=== PATIENT | female | born 1970 ===

== ENCOUNTER 2017-08-09 15:53 | Observation (INO) | payer OTHER ==
[~2017-08-09] VITALS: Ht 154.9 cm; Wt 68.0 kg
[~2017-08-09 15:53] MED LIST: ALPR.5 PO; ATEN25 PO; BUSP10 PO; CEFD300 PO; CITA20 PO; CLIN300 PO; CODGUAEL PO; CYCL10 PO; ESCI10 PO; GABA100 PO; GUAI600T33 PO; HYDPAM25 PO; IBUP800 PO; Inderal40 MG PO; LAMO100 PO; OXYC5 PO; PRAZ1 PO; PREG150 PO; PREG50 PO; Venlafaxine HC225 MG PO
[2017-08-09 16:26] LABS: BASOPHILS ABSOLUTE AUTO 0.06 K/mm3 (0.00-0.23); BASOPHILS PERCENT AUTO 1 % (0-2); EOSINOPHILS ABSOLUTE AUTO 0.21 K/mm3 (0.00-0.68); EOSINOPHILS PERCENT AUTO 2 % (0-6); Hematocrit 39.5 % (33.0-51.0); Hemoglobin 13.5 g/dL (11.5-16.0); IMMATURE GRAN ABSOLUTE AUTO 0.04 K/mm3 (0.00-0.10); IMMATURE GRAN PERCENT AUTO 0 % (0-1); LYMPHOCYTES ABSOLUTE AUTO 3.35 K/mm3 (0.84-5.20); LYMPHOCYTES PERCENT AUTO 27 % (21-46); MONOCYTES ABSOLUTE AUTO 1.29 K/mm3 (0.16-1.47); MONOCYTES PERCENT AUTO 11 % (4-13); Mean Corpuscular HGB 30.1 pg (26.0-34.0); Mean Corpuscular HGB Conc 34.2 g/dL (31.5-36.5); Mean Corpuscular Volume 88 fL (80-100); Mean Platelet Volume 9.6 fL (9.1-12.4); NEUTROPHILS ABSOLUTE AUTO 7.32 K/mm3 (1.96-9.15); NEUTROPHILS PERCENT AUTO 60 % (41-73); Platelet Count 474 K/mm3 (150-400); RDW Coefficient Variation 15.1 % (11.7-14.2); Red Blood Cell Count 4.49 M/mm3 (3.80-5.20); White Blood Cell Count 12.27 K/mm3 (4.00-11.30)
[2017-08-09 17:11] LABS: Alanine Aminotransfer (ALT/SGP 20 U/L (12-78); Albumin, Blood 3.7 g/dL (3.4-5.0); Albumin/Globulin Ratio 0.8 (0.8-1.8); Alk Phos 113 U/L (50-136); Anion Gap 10 mmol/L (6-16); Aspartate Aminotrans (AST/SGOT 19 U/L (12-37); Bilirubin, Total 0.4 mg/dL (0.1-1.0); Blood Urea Nitrogen 7 mg/dL (8-24); Bun/Creatinine Ratio 8.4 (12.0-20.0); CO2, Blood 24 mmol/L (21-32); Calcium, Blood 9.7 mg/dL (8.5-10.1); Chloride, Blood 104 mmol/L (98-108); Creatinine, Blood 0.84 mg/dL (0.40-1.00); Ethanol (Alcohol), Blood, Med <3 mg/dL; Globulin, Blood 4.4 g/dL (2.2-4.0); Glomerular Filtration Rate >60 (60-); Glucose, Blood 103 mg/dL (70-99); Potassium, Blood 3.2 mmol/L (3.5-5.5); Salicylate 4.8 mg/dL (2.8-20.0); Sodium, Blood 138 mmol/L (136-145); Total Protein, Blood 8.1 g/dL (6.4-8.2)
[2017-08-09 17:15] LABS: Acetaminophen, Random <2.0 ug/mL (10.0-30.0)
[2017-08-09 17:39] LABS: Bilirubin, Urine Neg (Neg); Blood, Urine Neg (Neg); Glucose Qualitative, Urine Neg (Neg); Ketones, Urine Neg (Neg); Leukocyte Esterase, Urine Neg (Neg); Nitrite, Urine Neg (Neg); Protein, Urine Neg (Neg); Specific Gravity, Urine 1.005 (1.003-1.022); Urobilinogen, Urine NORM (Normal); pH, Urine 6.5 (5.0-8.0)
[2017-08-09 17:53] LABS: Color, Urine Yellow (P-Yellow)
[2017-08-09 17:54] LABS: Appearance, Urine Clear (Clear)
[2017-08-09 17:56] LABS: U Amphetamine Screen Not Detected; U Barbituate Screen Not Detected; U Benzodiazapine Screen Not Detected; U Buprenorphine Screen Not Detected; U Cannabinoids Screen DETECTED; U Cocaine Screen Not Detected; U Methadone Screen Not Detected; U Methamphetamine Screen Not Detected; U Opiates Screen Not Detected; U Oxycodone Screen Not Detected; U Phencyclidine Screen Not Detected; U Propoxyphene Screen Not Detected
[2017-08-09] MEDS ORDERED: PREG150 PO (19:50)
== END 2017-08-10 17:20 | disposition home or self-care (01) ==
LOC: ER 15:53 → EOR 15:54
PROVIDERS: Emergency Medicine
DX: F29 Unspecified psychosis not due to a substance or known physiological condition (principal); F31.9 Bipolar disorder, unspecified; F17.210 Nicotine dependence, cigarettes, uncomplicated
CPT/HCPCS: 80053; 81003; 84436; 84443; 85025; 99285; G0378; G0480; Q3014

== ENCOUNTER 2024-09-24 21:20 | Inpatient (IN) | payer OTHER ==
[~2024-09-24] VITALS: Ht 152.4 cm; Wt 64.9 kg
[~2024-09-24 21:20] MED LIST changes: +VENL150ER PO; -Venlafaxine HC225 MG PO
[2024-09-24 21:56] LABS: BASOPHILS ABSOLUTE AUTO 0.03 K/mm3 (0.00-0.23); BASOPHILS PERCENT AUTO 0 % (0-2); EOSINOPHILS ABSOLUTE AUTO 0.12 K/mm3 (0.00-0.68); EOSINOPHILS PERCENT AUTO 1 % (0-6); Hematocrit 24.2 % (33.0-51.0); Hemoglobin 6.9 g/dL (11.5-16.0); IMMATURE GRAN ABSOLUTE AUTO 0.07 K/mm3 (0.00-0.10); IMMATURE GRAN PERCENT AUTO 0 % (0-1); LYMPHOCYTES ABSOLUTE AUTO 2.35 K/mm3 (0.84-5.20); LYMPHOCYTES PERCENT AUTO 13 % (21-46); MONOCYTES ABSOLUTE AUTO 0.99 K/mm3 (0.16-1.47); MONOCYTES PERCENT AUTO 6 % (4-13); Mean Corpuscular HGB 24.6 pg (26.0-34.0); Mean Corpuscular HGB Conc 28.5 g/dL (31.5-36.5); Mean Corpuscular Volume 86 fL (80-100); Mean Platelet Volume 10.9 fL (9.1-12.4); NEUTROPHILS ABSOLUTE AUTO 14.35 K/mm3 (1.96-9.15); NEUTROPHILS PERCENT AUTO 80 % (41-73); NRBC ABSOLUTE 0.02 K/mm3 (0.00-0.02); NRBC Auto 0.1 /100 WBC (0.0-0.2); Platelet Count 188 K/mm3 (150-400); RDW Coefficient Variation 23.6 % (11.7-14.2); White Blood Cell Count 17.91 K/mm3 (4.00-11.30)
[2024-09-24] MEDS ORDERED: NS 1,000 ML IV SCH ×2 (22:10→23:35)
[2024-09-24 22:12] LABS: U Amphetamine Screen Not Detected; U Barbituate Screen Not Detected; U Benzodiazapine Screen Not Detected; U Buprenorphine Screen Not Detected; U Cannabinoids Screen Not Detected; U Cocaine Screen Not Detected; U Methadone Screen Not Detected; U Methamphetamine Screen Not Detected; U Opiates Screen Not Detected; U Oxycodone Screen Not Detected; U Phencyclidine Screen Not Detected
[2024-09-24 22:15] LABS: Source, Urine Straight Cath
[2024-09-24 22:21] LABS: Bilirubin, Urine 2+ (Neg); Blood, Urine 1+ (Neg); Glucose Qualitative, Urine Neg (Neg); Ketones, Urine Neg (Neg); Leukocyte Esterase, Urine 1+ (Neg); Nitrite, Urine Neg (Neg); Protein, Urine 2+ (Neg); Specific Gravity, Urine 1.025 (1.003-1.022); Urobilinogen, Urine 3+ (Normal)
[2024-09-24 22:22] LABS: Appearance, Urine Cloudy (Clear); Color, Urine Amber (P-Yellow)
[2024-09-24 22:25] LABS: Alanine Aminotransfer (ALT/SGP 38 U/L (12-78); Albumin, Blood 1.5 g/dL (3.4-5.0); Albumin/Globulin Ratio 0.3 (0.8-1.8); Alk Phos 289 U/L (50-136); Anion Gap 9 mmol/L (3-11); Aspartate Aminotrans (AST/SGOT 106 U/L (12-37); Bilirubin, Total 4.5 mg/dL (0.1-1.0); Blood Urea Nitrogen 26 mg/dL (8-24); CO2, Blood 28 mmol/L (21-32); Calcium, Blood 8.6 mg/dL (8.5-10.1); Chloride, Blood 105 mmol/L (98-108); Creatinine, Blood 1.13 mg/dL (0.40-1.00); Ethanol (Alcohol), Blood, Med <3 mg/dL; Globulin, Blood 4.7 g/dL (2.2-4.0); Glomerular Filtration Rate 58 (60-); Glucose, Blood 93 mg/dL (70-99); Potassium, Blood 3.6 mmol/L (3.5-5.5); Sodium, Blood 138 mmol/L (136-145); Total Protein, Blood 6.2 g/dL (6.4-8.2)
[2024-09-24 22:29] LABS: Bacteria Many /hpf; Red Blood Cells, Urine 0-2 /hpf (0-2); Squamous Epithelial Cells Rare /hpf (Few); Transitional Epithelial Cells Few /hpf (0-Rare)
[2024-09-24] MEDS ORDERED: CefTRIAXone Sodium 1,000 MG in NS 50 ML IV ONE (23:10)
[2024-09-24 23:36] LABS: International Normalized Ratio 1.58; Prothrombin Time Results 16.3 Sec (9.7-11.5)
[2024-09-25] VITALS (78 sets, daily range): BP systolic 75–120; BP diastolic 33–98
[2024-09-25 02:09] LABS: Hemoglobin 6.1 g/dL (11.5-16.0)
[2024-09-25] MEDS ORDERED: NS 1,000 ML IV SCH ×2 (04:45→06:00)
[2024-09-25] MEDS ORDERED: Albumin (Human) 25gm/100ml 100 ML IV ONE (05:45)
[2024-09-25] MEDS ORDERED: CefTRIAXone Sodium 1,000 MG in NS 100 ML IV ONE (05:45)
[2024-09-25 05:57] LABS: Base Excess Venous 2.1 mmol/L; Bicarbonate Venous 26.1 mmol/L (24.0-30.0); PCO2 Venous 43.3 mmHg (38-42)
[2024-09-25] MEDS ORDERED: Ondansetron HCl 2 MG / ML 2ML Vial IV PRN (06:00)
[2024-09-25 06:04] LABS: Hematocrit 27.2 % (33.0-51.0); Hemoglobin 8.4 g/dL (11.5-16.0)
[2024-09-25] MEDS ORDERED: Heparin Sodium,Porcine/0.5 NS 500 ML IV SCH (06:20)
[2024-09-25 06:27] LABS: Acetaminophen, Random <2.0 ug/mL (10.0-30.0); Bilirubin, Direct 3.3 mg/dL (0.0-0.3); Bilirubin, Indirect 0.7 mg/dL (0.1-0.7); Ferritin, Serum 77 ng/mL (8-252); Iron Serum 21 ug/dL (50-170); Percent Saturation 13.2 % (15.0-50.0); Total Iron Binding Capacity 159 ug/dL (250-450)
--- NOTE | 2024-09-25 06:35 | NUR ---
ADMISSION 0450 RECEIVED PT FROM ED VIA STRETCHER, TRANSFERRED TO ICU BED ROOM 7, PT AWAKE AND ALERT ORIENTED TO SELF ONLY, FOLLOWS COMMANDS, STATES HER BIRTHDAY IS , PLEASANTLY CONFUSED, SR -SA 70s, BP GOAL MAP >65, TEMP 95.5f , BARE HUGGER ON , PERALTA PATENT AND DRAINING DARWIN URINE TO GRAVITY, MULTI WOUNDS TO MELISSA HIPS, RIGHT THIGH, PERIAREA, AND SACRUM WITH PICTURES IN CHART, PT JAUNDICED, ABD ROUNDED AND FIRM, PIV X4 TO BUE PATENT, 250 ML BOLUS COMPLETED AT TRANSFER, DR WALKER AT BEDSIDE, MAP >65 AT THIS TIME, WILL HOLD ON PLACING CENTRAL LINE AT THIS TIME, LEVOPHED STARTED AT 0530 AT 2 MCG/MIN PER ERAR, PT POSITIONED FOR COMFORT, SIDE RAILS UP X4 BED ALARM MANAGER VALUATION LIGHT IN REACH, PT GIVEN COMPLETED BEDBATH WITH ADMIT, NOTED SMALL NICKEL SIZE BLOODCLOT AT VAGINAL OPENING WITH PERALTA CARE, PT STATES SHE HAS BEED BLEEDING FOR A FEW DAYS AND DOES STILL HAVE HER PERIOD HOWEVER ALSO STATED " THE BABY IN CORNER IS CUTE AND NEEDS ATTENDING TO" AND THAT SHE " IS NOT RIGHT NOW"
[2024-09-25] MEDS ORDERED: Dextrose 50% 50 ML Vial IV PRN (06:55)
[2024-09-25] MEDS ORDERED: Lactobacil 2-S.Thermo-Bifido 1 1 Cap PO SCH (09:00)
[2024-09-25 10:12] LABS: Hematocrit 24.4 % (33.0-51.0); Hemoglobin 7.4 g/dL (11.5-16.0)
[2024-09-25] MEDS ORDERED: Pantoprazole Sodium 40 MG Injection IV SCH (11:25)
[2024-09-25] MEDS ORDERED: D5W-NS 1,000 ML IV ONE (13:30)
[2024-09-25] MEDS ORDERED: Sod Ferric Gluc Complx/Sucrose 125 MG in NS 100 ML IV SCH (13:35)
[2024-09-25] MEDS ORDERED: Miconazole Nitrate 2% 85 GM PWD TOP SCH (14:00)
[2024-09-25 14:17] LABS: Hematocrit 23.1 % (33.0-51.0); Hemoglobin 7.2 g/dL (11.5-16.0)
--- NOTE | 2024-09-25 15:36 | NUR ---
PARACENTESIS: DR. LINK AT BEDSIDE FOR PARACENTESIS. PATIENT TOLERATED VERY WELL. THIS RN AT BEDSIDE. 1L PULLED. LAB ORDERS COLLECTED AND SAMPLE DROPPED OFF AT LAB BY WIRE WRAPPER MACHINE OPERATOR. CONSENT HAD BEEN RECEIEVED BEFORE PROCEDURE FROM PATIENT'S MOTHER LAURIE BOOTHE. VITALS STABLE THROUGHOUT.
[2024-09-25] MEDS ORDERED: Dose Adjust by Pharmacy XX STA ×2 (15:56→22:27)
--- NOTE | 2024-09-25 15:57 | NUR ---
At the request of the Pts. nurse this rice dryer mechanic came to bedside. Pt. is resting but responds when I enter the room. Pt. displays evidence of grogginess, therfore her life review was rather brief. Pt. did verbalize that she practices her yazdanism yobany. Prayed with the Pt. Pt. verbalized gratitude for the spiritual care visit. Will remain available to the Pt.
[2024-09-25 16:15] LABS: Appearance, Body Fluid Clear (Clear); Body Fluid WBC Count 40 /mm3 (0-999); Color, Body Fluid Yellow (None-Yellow); RBC Count, Body Fluid 21 /mm3 (0-0)
[2024-09-25 16:32] LABS: Glucose, Body Fluid 92 mg/dL; Lactate Dehydrogenase, Body Fl 44 U/L
[2024-09-25 16:33] LABS: Albumin, Body Fluid 0.3 g/dL
[2024-09-25] MEDS ORDERED: Albumin (Human) 25gm/100ml 100 ML IV SCH (16:33)
[2024-09-25 16:36] LABS: Protein, Body Fluid 0.8 g/dL
[2024-09-25 16:37] LABS: Total Cell Count, Body Fluid 100
[2024-09-25 18:15] LABS: Hematocrit 24.1 % (33.0-51.0); Hemoglobin 7.4 g/dL (11.5-16.0)
--- NOTE | 2024-09-25 19:21 | NUR ---
SHIFT SUMMARY: NEURO: PATIENT CONTINUED TO BE DROWSY THROUGHOUT THE SHIFT. PATIENT EASILY WOKEN BY VERBAL STIMULI. PATIENT ORIENTED TO SELF, "HOSPITAL" AND 2024. PATIENT ABLE TO FOLLOW SOME DIRECTIONS. RESPONSES ARE DELAYED. MOVING ALL FOUR EXTREMITIES INDEPENDENTLY. DENIED PAIN THROUGHOUT THE SHIFT. PATIENT SHIFTS FREQUENTLY IN THE BED. ASSISTED WITH TURNS. CARDIAC: PATIENT REMAINED ON LEVOPHED AT 3 MCG/MIN TO MAINTAIN MAPS >65. HR IN THE 70-80S. PATIENT DENIED CHEST PAIN OR DISCOMFORT. VITALS REMAINED STABLE POST PARACENTESIS. RESPIRATORY: PATIENT STABLE ON ROOM AIR THROUGHOUT THE SHIFT. SPO2 >92%. BREATHING EVEN AND REGULAR. GI/: PERALTA IN PLACE AND DRAINING FREELY. CLEAR, DARWIN IN COLOR. ABOUT 336 OUT DURING THE SHIFT. NO BOWEL MOVEMENT TODAY. PARACENTESIS PERFORMED AT 1500. PATIENT TOLERATED WELL. ABOUT 1 L OF YELLOW/GREEN FLUID PULLED OFF. PSYCHSOCIAL: PATIENT CALM AND COOPERATIVE. PATIENT RESTLESS IN BED BUT NOT PULLING AT LINES. AT TIMES PATIENT WOULD RESPOND TO A QUESTION THAT WASN'T ASKED. PATIENT'S SISTER CHARLES AT BEDSIDE TODAY. SHE IS CALM AND RECEPTIVE TO UPDATES. PATIENT'S DAUGHTER VICKY CALLED MULTIPLE TIMES TODAY. PATIENT GAVE VERBAL CONSENT FOR US TO PROVIDE INFORMATION TO HER MOTHER, SISTER AND DAUGHTER.
[2024-09-25] MEDS ORDERED: Thiamine HCl 100 MG in NS 50 ML IV SCH (20:00)
--- NOTE | 2024-09-25 22:15 | NUR ---
UPDATE ASSUMED CARE OF PT AT 1900. PT OPENS EYES WITH VERBAL STIMULI, FOLLOWS COMMANDS, BUT RESTLESS AND FIDGETING WITH ALL LINES, NEEDS FREQUENT REDIRECTION TO NOT REMOVE PULSE OX AND TO NOT PULL ON LINES, PLEASANT MICHELLE NOTED, STATES HER BIRTHDAY IS [birth year] AND REPEATS THAT OVER AND OVER WHEN ASKED WHAT YEAR SHE WAS BORN, WHEN ASKED HOW OLD SHE IS PT STATES "28" WHEN CORRECTED TO AGE 54 BY NURSE PT JUST LAUGHED, ALL OTHER ORIENTATION QUESTIONS ANSWERED WITH "UMM" ONLY, PIV X2 TO BUE PATENT WITH LEVOPHED GTT TITRATED PER EMAR FOR MAP >65, HEPARIN GTT INFUSING PER EMAR AND TITRATED PER PHARMACY MANAGEMENT, NS INFUSING AT 100 ML/HR, PERALTA PATENT AND DRAINING TO GRAVITY, SCDs ON, BED ALARM ON SIDE RAILS UP X3, ORAL DONE, TEETH BRUSHED, AND PT GIVEN 30 ML MOUTHWASH TO RINSE MOUTH AND PT SWALLOWED MOUTH WASH WITHOUT DIFFICULTY
[2024-09-26] VITALS (53 sets, daily range): BP systolic 88–161; BP diastolic 51–134
[2024-09-26 03:27] LABS: BASOPHILS ABSOLUTE AUTO 0.04 K/mm3 (0.00-0.23); BASOPHILS PERCENT AUTO 0 % (0-2); EOSINOPHILS ABSOLUTE AUTO 0.18 K/mm3 (0.00-0.68); EOSINOPHILS PERCENT AUTO 1 % (0-6); Hemoglobin 7.4 g/dL (11.5-16.0); IMMATURE GRAN ABSOLUTE AUTO 0.19 K/mm3 (0.00-0.10); IMMATURE GRAN PERCENT AUTO 1 % (0-1); LYMPHOCYTES ABSOLUTE AUTO 3.11 K/mm3 (0.84-5.20); LYMPHOCYTES PERCENT AUTO 17 % (21-46); MONOCYTES ABSOLUTE AUTO 1.49 K/mm3 (0.16-1.47); MONOCYTES PERCENT AUTO 8 % (4-13); Mean Corpuscular HGB 27.2 pg (26.0-34.0); Mean Corpuscular HGB Conc 30.8 g/dL (31.5-36.5); Mean Corpuscular Volume 88 fL (80-100); NEUTROPHILS PERCENT AUTO 72 % (41-73); NRBC ABSOLUTE 0.05 K/mm3 (0.00-0.02); NRBC Auto 0.3 /100 WBC (0.0-0.2); Platelet Count 161 K/mm3 (150-400); RDW Coefficient Variation 21.3 % (11.7-14.2); RDW Standard Deviation 67.1 fL (35.1-46.3); Red Blood Cell Count 2.72 M/mm3 (3.80-5.20); White Blood Cell Count 18.01 K/mm3 (4.00-11.30)
[2024-09-26 03:43] LABS: Anti-Xa UFH, PHA Monitoring 0.31 IU/mL; International Normalized Ratio 1.92; Prothrombin Time Results 19.6 Sec (9.7-11.5)
[2024-09-26 03:47] LABS: Albumin, Blood 2.4 g/dL (3.4-5.0); Albumin/Globulin Ratio 0.7 (0.8-1.8); Bilirubin, Total 4.1 mg/dL (0.1-1.0); Bun/Creatinine Ratio 13.2 (12.0-20.0); Creatinine, Blood 1.06 mg/dL (0.40-1.00); Globulin, Blood 3.5 g/dL (2.2-4.0); Magnesium, Blood 1.5 mg/dL (1.6-2.4); Phosphorus, Blood 2.1 mg/dL (2.5-4.9); Potassium, Blood 2.9 mmol/L (3.5-5.5); Total Protein, Blood 5.9 g/dL (6.4-8.2)
[2024-09-26] MEDS ORDERED: Magnesium Sulf 2 GM/Water 50ML 50 ML IV ONE (03:55)
[2024-09-26] MEDS ORDERED: Potassium Chloride 40 MEQ in NS 250 ML IV ONE (03:55)
[2024-09-26] MEDS ORDERED: Dose Adjust by Pharmacy XX STA ×2 (04:06→11:04)
--- NOTE | 2024-09-26 06:10 | NUR ---
SHIFT SUMMARY PT AWAKE AND ALERT MOST OF SHIFT CONFUSED ALL SHIFT AND FORGETFUL WITH NEED FOR FREQUENT REMINDERS TO LEAVE LINES IN PLACE AND POSITIONING OF ARM FOR IV FLUIDS, EASILY REDIRECTABLE, ASKING MORE QUESTIONS THIS AM OF LOCATION AND WHY SHE IS HERE, STATES SHE IS "IN [place], [place]" AND "GEORGE RAYGOZA IS PRESIDENT",WATCHING TV MOST OF THIS SHIFT, REMAINS ON LEVOPHED GTT AND TITRATED PER EMAR, HEPARIN GTT INFUSING AT 15 UNITS/KG/HR PER PHARMACY, MAG AND POTASSIUM REPLACEMENT INFUSING PER ORDERS, PERALTA PATENT AND DRAINING DARK YELLOW URINE TO GRAVITY, NO BM THIS SHIFT WITH SCANT AMOUNT OF VAGINAL BLEEDING NOTED, PT REQUESTING "[employer]" TO DRINK AND STATES " YOU ARE TOTURING ME NOT LETTING ME DRINK" SIDE RAILS UP X3, BED ALARM DETACKER LIGHT IN REACH
--- NOTE | 2024-09-26 08:30 | NUR ---
[place] of care: Alert & cooperative but confused. Oriented to person & year, knows she is in the hospital but believes she is in [place]. In NSR in the 70s with stable blood pressures - norepi gtt turned off. On room air with clear lung sounds. Groves catheter in place. Currently NPO. PIV x4. Heparin gtt at 15 units/kg/hr. Will continue to monitor.
[2024-09-26] MEDS ORDERED: NS 250 ML IV PRN (08:55)
[2024-09-26] MEDS ORDERED: CefTRIAXone Sodium 2,000 MG in NS 100 ML IV SCH (09:00)
[2024-09-26] MEDS ORDERED: Thiamine HCl 100 MG in NS 50 ML IV SCH (09:00)
[2024-09-26] MEDS ORDERED: Potassium Phosphate Dibasic 30 MM in Dextrose 5% 500 ML IV STA (11:56)
--- NOTE | 2024-09-26 18:00 | NUR ---
Shift summary: Remains confused, oriented to person/year & knows she is in hospital but thinks she is in [place]. Pleasant & cooperative. OOB to chair with walker & one-person assist. In NSR in the 70s with stable blood pressures off levo gtt. On room air. Groves remains in place, draining sophia urine with only 300 cc out for shift. Regular diet ordered but has been drowsy with poor appetite. PIV x4. Heparin gtt remains at 15 units/kg/hr. PCU orders. Will continue to monitor.
[2024-09-26] MEDS ORDERED: Potassium Chloride 10 Meq Tablet SA PO ONE (19:50)
[2024-09-27] VITALS (16 sets, daily range): BP systolic 90–121; BP diastolic 62–90
[2024-09-27 04:58] LABS: Hematocrit 23.4 % (33.0-51.0); Mean Corpuscular HGB 25.7 pg (26.0-34.0); Mean Corpuscular HGB Conc 29.9 g/dL (31.5-36.5); Mean Corpuscular Volume 86 fL (80-100); NRBC ABSOLUTE 0.09 K/mm3 (0.00-0.02); NRBC Auto 0.6 /100 WBC (0.0-0.2); Platelet Count 128 K/mm3 (150-400); RDW Coefficient Variation 21.3 % (11.7-14.2); RDW Standard Deviation 64.9 fL (35.1-46.3); Red Blood Cell Count 2.72 M/mm3 (3.80-5.20); White Blood Cell Count 16.05 K/mm3 (4.00-11.30)
[2024-09-27 05:00] LABS: Mean Platelet Volume 11.3 fL (9.1-12.4)
[2024-09-27 05:17] LABS: Albumin, Blood 2.3 g/dL (3.4-5.0); Albumin/Globulin Ratio 0.7 (0.8-1.8); Bilirubin, Total 4.1 mg/dL (0.1-1.0); Bun/Creatinine Ratio 9.4 (12.0-20.0); Calcium, Blood 8.2 mg/dL (8.5-10.1); Creatinine, Blood 0.96 mg/dL (0.40-1.00); Globulin, Blood 3.4 g/dL (2.2-4.0); Magnesium, Blood 1.9 mg/dL (1.6-2.4); Phosphorus, Blood 2.4 mg/dL (2.5-4.9); Potassium, Blood 3.9 mmol/L (3.5-5.5); Total Protein, Blood 5.7 g/dL (6.4-8.2)
--- NOTE | 2024-09-27 05:37 | NUR ---
SHIFT SUMMARY: PT ATE VERY LITTLE OF HER DINNER AND A FEW SIPS OF AN ENSURE; ENCOURAGED TO EAT/ DRINK MORE. 20 MEQ POTASSIOUM CHLORIODE GIVEN PER PROVIDER ORDER @ 1900 AND LABS RECHECKED THIS MORNING WITH AN INCREASE IN POTASSIUM FROM 2.9 TO 3.9. NO OTHER ACUTE CHANGES OVERNIGHT, PT SLEPT THE MAJORITY OF THE NIGHT. URINE OUPUT OF 300ML TOTAL FOR THE SHIFT AND CONTINUES TO BE AN DARWIN COLOR. ONE NEW ADDITIONAL MEPILEX DRESSING APPLIED TO BLEEDING EXCORIATION ON THE RIGHT GLUTEAL CHEEK. MINIMAL VAGINAL BLEEDING NOTED WHILE PERFORMING CHILO CARE. HEPARIN DRIP CONTINUES GTT 15 MCG/KG/HR.
[2024-09-27] MEDS ORDERED: Dose Adjust by Pharmacy XX STA ×3 (06:23→20:56)
[2024-09-27] MEDS ORDERED: Multivitamins 1 Tab PO SCH (09:00)
--- NOTE | 2024-09-27 09:19 | NUR ---
AM NOTE... ASSUMED CARE OF PT AT 0700, PT IS A&O TO PLACE "HOSPITAL" AND SELF SHE THOUGHT SHE WAS IN [place] AND WHEN ASKED THE YEAR SHE SAID "2024" WHEN ASKED THE MONTH SHE SAID "2024" AND WHEN ASKED HER SHE SAID "2024." PT IS PLEASENT AND COOPERATIVE WITH CARE. SHE IS ON RA WITH O2 SATS>95% L/S CLEAR T/O. PT IS IN SR IN THE 70'S-80'S BP IS STABLE WITH MAPS>65. PT HAS TRACE EDEMA TO HER RLE AND 1+ TO HER LLE. BT ARE PRESENT AND HYPOACTIVE, ABD IS LARGE, AND SLIGHTLY FIRM. TEMP PERALTA IS IN PLACE FOR STRICT I'S AND O'S THIS RN WILL CALL THE PROVIDER ABOUT D/C'ing THE PERALTA. PT'S TEMP THIS AM WAS 96.7. PT IS A 1P ASSIST WITH FWW TO THE BS, SHE HAD A MED LIGHT BROWN SOFT STOOL. PT IS HAVING A SMALL AMOUNT OF [place] RED BLOOD FROM HER VAGINAL AREA, PT DENIES PAIN TO THIS AREA. PT ALSO DENIES ANY KNOWN REASON FOR THE BLEEDING. PLANS TO TRANSFER TO PCU THIS AM.
--- NOTE | 2024-09-27 10:14 | NUR ---
PT TRANSFER... REPORT WAS GIVEN TO COLLINS JOSHI IN PCU. ALL OF PT'S BELONGINGS WERE PACKED AND SENT WITH THE PT. PT'S VSS AT THE TIME OF TRANSFER. THE PT'S MOM LAURIE WAS CALLED AND NOTIFIED OF THE TRANSFER. PT'S KATHRYN WAS D/C'd PRIOR TO TRANSFER TO PCU.
--- NOTE | 2024-09-27 11:54 | NUR ---
PT TRANSFERRED FROM ICU TO PCU01 VIA WHEELCHAIR ACCOMPANIED BY COMMERCIAL DIVER, PT WAS CURRENTLY RECEIVING BLOOD AT THAT TIME. PT IS PLEASANT AND COOPERATIVE ANSWERS SOME QUESTIONS APPROPRIATELY GETS CONFUSED AT TIMES. ALERT AND ORIENTED X2-3. VITALS HRR SR 70-80'S, SBP 110'S, SATS ABOVE 95% ON RA AFEBRILE. PT RESTING IN BED AT THIS TIME, WILL CONTINUE TO MONITOR
[2024-09-27 12:17] LABS: HEPATITIS A ANTIBODY, IGM Negative (Negative); HEPATITIS B CORE ANTIBODY, IGM Negative (Negative); HEPATITIS B SURFACE ANTIGEN Negative (Negative); HEPATITIS C AB CIA INTERP Negative (Negative); HEPATITIS C ANTIBODY CIA INDEX 0.12 IV
[2024-09-27] MEDS ORDERED: Potassium Phosphate Dibasic 30 MM in Dextrose 5% 500 ML IV STA (12:56)
[2024-09-27 13:13] LABS: Hematocrit 28.4 % (33.0-51.0); Hemoglobin 8.7 g/dL (11.5-16.0)
--- NOTE | 2024-09-27 17:09 | NUR ---
SHIFT SUMMARY: RECIEVED PT FROM ICU TODAY. PT IS A/OX 1-2. PT IS AWARE SHE IS IN A HOSPITAL BUT CAN GET CONFUSED ON SITUATION, LOCATION OF HOSPITAL, AND DATE. BP IS STABLE WITH MAP >65. O2 >95% ON ROOM AIR. PT ARRIVED ON UNIT RECIEVING BLOOD. NO SIGNS OF REACTION AT THIS TIME. PT WAS ABLE TO AMBULATE 1-2 ASSIST TO BSC.PT HAD A BM TODAY. PT HAS NOT VOIDED SINCE CATHETER REMOVAL BLADDER SCAN SHOW <400 IN BLADDER.WILL REPORT TO ONCOMING RN.
[2024-09-28 00:20] VITALS: BP 108/76
[2024-09-28 03:19] LABS: Hematocrit 28.4 % (33.0-51.0); Hemoglobin 8.7 g/dL (11.5-16.0); Mean Corpuscular HGB Conc 30.6 g/dL (31.5-36.5); Mean Corpuscular Volume 88 fL (80-100); Mean Platelet Volume 12.2 fL (9.1-12.4); NRBC ABSOLUTE 0.09 K/mm3 (0.00-0.02); NRBC Auto 0.5 /100 WBC (0.0-0.2); Platelet Count 122 K/mm3 (150-400); RDW Coefficient Variation 19.9 % (11.7-14.2); RDW Standard Deviation 59.7 fL (35.1-46.3); Red Blood Cell Count 3.22 M/mm3 (3.80-5.20); White Blood Cell Count 16.98 K/mm3 (4.00-11.30)
[2024-09-28 03:34] VITALS: BP 107/85
[2024-09-28 03:38] LABS: Bun/Creatinine Ratio 12.9 (12.0-20.0); Calcium, Blood 8.2 mg/dL (8.5-10.1); Creatinine, Blood 0.86 mg/dL (0.40-1.00); Magnesium, Blood 1.7 mg/dL (1.6-2.4); Phosphorus, Blood 2.6 mg/dL (2.5-4.9)
--- NOTE | 2024-09-28 03:38 | NUR ---
sHIFT SUMMARY: PT IS ALERT BUT FORGETFUL WITH A FLAT AFFECT, SHE IS NSR IN 80-90S RUNNING HEPARIN WITH ONE TITRATION THIS SHIFT , RA-LUNGS CLEAR BUT DIM AT BASES, ABD IS LARGE AND TAUNT WITH FLUID MAKING A BLADDER SCAN IMPOSSIBLE TO OBTAIN AN ACURATE READING SINCE PERALTA WAS PULLED UPON DC FROM ICU, REG DIET THIN FLUIDS, SLIGHT VAGINAL BLEEDING NOTED THIS SHIFT, PT ENDORSES R QUAD PAIN WHEN SHE SITS UP, HGB WNL AT THIS TIME, WBC TRENDING UP, PT IS ABLE TO MAKE HER NEEDS KNOWN AND IS COOPERATIVE WITH CARES, SHE HAS HER CALL LIGHT AND FREQUENTLY USED ITEMS WITH IN REACH AT THIS TIME
[2024-09-28] MEDS ORDERED: Clarify Drug Order XX ONE (03:50)
[2024-09-28 07:58] VITALS: BP 100/73
[2024-09-28] MEDS ORDERED: Dose Adjust by Pharmacy XX STA ×2 (10:59→17:36)
[2024-09-28 12:30] VITALS: BP 150/77
[2024-09-28 16:12] VITALS: BP 108/71
--- NOTE | 2024-09-28 17:17 | NUR ---
SHIFT SUMMARY: PT VSS T/O SHIFT. NO ACUTE CHANGES. PT AMBULATED TO CHAIR TODAY AND WAS EVALUATED BY PHYSICAL THERAPY, RECOMMENDS LTC DUE TO COGNITIVE CONCERNS. THORACENTESIS SCHEDULED FOR 09/30/24. PLAN IS TO D/C HEPARIN DRIP POST THORACENTESIS FOR ORAL BLOOD THINNERS. WILL REPORT TO ONCOMING RN. PT HAS POOR APPETITE T/O SHIFT, DIETARY CONSULT ORDERED. PRIMARY RN UPDATED PT DAUGHTER ON PLAN OF CARE.
[2024-09-28 19:47] VITALS: BP 119/94
[2024-09-29] VITALS (7 sets, daily range): BP systolic 105–126; BP diastolic 75–88
[2024-09-29] MEDS ORDERED: Dose Adjust by Pharmacy XX STA (01:07)
--- NOTE | 2024-09-29 05:33 | NUR ---
SHIFT SUMMARY: : PT AOX3, UNABLE TO LET NURSE KNOW WHAT HOSPITAL SHE IS IN, THINKS [facility] [place]. OTHERWISE, PT COOPERATIVE W/ STAFF. SHE NEEDS FREQUENT ORIENTATION TO UTILIZE CALL LIGHT. ON TELE SR HRS 97s. DENIES CP/PRESSURE. BPS STABLE, MAPS 90-100S. HEP/GTT RUNNING PER EMAR LAC. ON RA AT BASELINE, DID PUT PT ON 3L NOC O2 D/T SATS <88%, NOW STAYING >98%. BREATHING IS EVEN AND UNLABORED. PT HAD A PARACENTESIS DONE ON DAY SHIFT AND THE PUNCTURE FROM THE SITE WAS ACTIVELY LEAKING FLUID EARLIER IN THE SHIFT THAT SATURATED HER BED/GOWN. COVERED IT W/ABD PAD AND TEGADERM, RECHECKED END OF SHIFT AND SITE LEAKING W/ PT MOVEMENT AND PRESSURE, REDRESSED SITE W/ A 2X2 GAUZE, FLUID IS CLEAR, PT DENIES PAIN AT SITE AND WHEN PALPATING ABD, SEE GI ASSESSMENT. OTHERWISE, NO ACUTE CHANGES THROUGHOUT SHIFT. BED AT LOWEST POSITION, CALL LIGHT WITHIN REACH.
--- NOTE | 2024-09-29 06:40 | NUR ---
REVIEWED AND AGREED WITH ALL FORESTRY PILOT DOCUMENTATION
[2024-09-29 07:22] LABS: Hematocrit 28.2 % (33.0-51.0); Hemoglobin 8.8 g/dL (11.5-16.0); Mean Platelet Volume 11.4 fL (9.1-12.4); Platelet Count 111 K/mm3 (150-400)
[2024-09-29] MEDS ORDERED: Arginine/Glutamine/Calcium Hmb 1 Packet PO SCH (10:15)
--- NOTE | 2024-09-29 10:37 | NUR ---
DAUGHTER CALLED FOR UPDATE TODAY. DAUGHTER WOULD LIKE A TEAMS MEETING IF NEEDED TO DISCUSS PATIENT DISCHARGE PLAN-DAUGHTER WOULD LIKE FOR PATIENT TO GO TO LTC PATIENT IS NOT ABLE TO CARE FOR HERSELF PER FAMILY. DAUGHTER UPDATED ON PATIENTS CURRENT CONDITION AND PLAN OF CARE FOR REPEAT PARCENTESIS TOMORROW 09/30/24 AND THAT DOCTOR DARY SAID THAT PATIENT COULD POTENTIALLY DISCHARGE TOMORROW OR THE NEXT DAY. DAUGHTER ALSO ASKED IF [facility] IS A[facility] THAT [facility]IENT IS [facility] THE HOSPITAL SHE IS A VERTERAN AND HAS [facility] BENEFITS. THIS RN LET DAUGHTER KNOW THAT CASE MANAGEMENT WORKS ON PATIENT DISCHARGE T/O THE PATIENTS HOSPITAL STAY AND THAT PLAN OF DISCHARGE IS DEPENDENT ON MULTIPLE FACTORS SUCH PATIENTS CONDITION, NEEDS, PT/OT RECOMMENDATIONS AND MORE. DAUGHTER IS CONCERNED THAT PATIENT "ACTS BETTER THAN SHE IS". DAUGHTER MENTIONS THAT HER AND HER GRANDMOTHER AND ANOTHER FAMILY MEMBER ARE WORKING TOGETHER TO MANAGE PATIENTS CARE NEEDS.
--- NOTE | 2024-09-29 17:49 | NUR ---
SHIFT SUMMARY. PATIENT IS A&OX2-3 WITH CONFUSION AT BEGINNING OF SHIFT-PATIENT REMAINS A&OX2-3 WITH CONFUSION AND MINIMAL CONCEPT OF TIME. PATIENT REPORTS THAT SHE GETS MIXED UP ON WHAT DAY IS WHAT AND WHAT TIME IT IS. PATIENT HAS REQUIRED 2P ASSIST TO BSC AND CHAIR TODAY. PATIENT HAS HEPARIN DRIP INFUSING PER ORDERS-SEE ORDERS. PATIENT IS PLEASANT AND COOPERATIVE WITH CARE. PATIENT WILL CALL AT TIMES. PATIENT IS IMPULSIVE-BED ALARM ON WHEN IN BED, CHAIR ALARM IS ON WHEN PATIENT UP IN CHAIR. PATIENT REQUESTING SHOWER THIS EVENING WILL RELAY TO NIGHTSHIFT NURSE. UPDATES GIVEN TO DAUGHTER. CHAIR ALARM IS ON WITH CALL LIGHT IN REACH, PUMP CLEARED AND DOCUMENTED. CARE NEEDS ASSESSED-PATIENT DENIES NEED AT THIS TIME. PATIENT LEFT IN A SAFE POSITION.
--- NOTE | 2024-09-29 23:27 | NUR ---
TOOK REPORT FROM [facility] 01 MADELYN SCHUSTER @ 1403.
--- NOTE | 2024-09-30 00:27 | NUR ---
PT ARRIVED ON MEDICAL UNIT RM 343 @ 3488 WITH ALL BELONGINGS AND ON HEPARIN DRIP AND 2L/NC O2. 2 RN SKIN ASSESSMENT COMPLETED.
[2024-09-30 03:41] VITALS: BP 111/83
[2024-09-30] MEDS ORDERED: Clarify Drug Order XX ONE (05:10)
--- NOTE | 2024-09-30 06:00 | NUR ---
NOTIFIED BY GERICARE AIDE TEACHER THAT PT HAD 10 BEAT RUN OF VTACH. PT ASSESSED AND ASYMPTOMATIC. HOSPTIATLIST NOTIFIED AND PT HAS CMP AND MAGNESIUM DRAW THIS AM. WILL MONITOR FOR LAB RESULTS AND CONTINOUS CARDIAC MONITORING.
--- NOTE | 2024-09-30 06:10 | NUR ---
SHIFT SUMMARY NOC PT A/O X 3. CONFUSED AND FORGETFUL AT TIMES, BUT PLEASANT AND COOPERATIVE WITH CARE. VSS. PT WAS PCU 01 TRANSFER @ 2345 LAST NIGHT. PT ON HEPARIN DRIP FOR PORTAL VEIN THROMBOSIS. PT HAS RLQ PARACENTESIS SITE FROM 09/25/24 WITH YELLOW EXUDATE, EXUDRY PAY WITH MEDIPORE TAPE IN PLACE C/D/I. MULTIPLE BLISTERS ON BACKSIDE COVERED WITH MEPILEX X 3 ARE C/D/I. PT ON TELE SINUS RHYHM IN 90'S AND RHYTHM STRIP VERIFIED BY RN. AROUND 0545 PT HAD 10 BEAT RUN OF VTACH, BUT ASYMPTOMATIC. AWARE. PT ON 2L/NC FOR SLEEP SPO2 >92%, ON CONTINOUS PULSE OXIMETRY. PT HAS SECOND PARACENTESIS SCHEDULED FOR TODAY, WELL A COGNITIVE EVALUATION. PT CURRENTLY RESTING WITH BED IN LOWEST POSITION, AND CALL LIGHT WITHIN REACH.
[2024-09-30 07:11] LABS: BASOPHILS ABSOLUTE AUTO 0.04 K/mm3 (0.00-0.23); BASOPHILS PERCENT AUTO 0 % (0-2); EOSINOPHILS ABSOLUTE AUTO 0.12 K/mm3 (0.00-0.68); EOSINOPHILS PERCENT AUTO 1 % (0-6); Hematocrit 29.2 % (33.0-51.0); IMMATURE GRAN ABSOLUTE AUTO 0.38 K/mm3 (0.00-0.10); IMMATURE GRAN PERCENT AUTO 2 % (0-1); LYMPHOCYTES ABSOLUTE AUTO 2.71 K/mm3 (0.84-5.20); LYMPHOCYTES PERCENT AUTO 16 % (21-46); MONOCYTES ABSOLUTE AUTO 1.74 K/mm3 (0.16-1.47); MONOCYTES PERCENT AUTO 11 % (4-13); Mean Corpuscular HGB 27.2 pg (26.0-34.0); Mean Corpuscular HGB Conc 30.8 g/dL (31.5-36.5); Mean Corpuscular Volume 88 fL (80-100); NEUTROPHILS ABSOLUTE AUTO 11.64 K/mm3 (1.96-9.15); NEUTROPHILS PERCENT AUTO 70 % (41-73); NRBC ABSOLUTE 0.06 K/mm3 (0.00-0.02); NRBC Auto 0.4 /100 WBC (0.0-0.2); Platelet Count 106 K/mm3 (150-400); RDW Coefficient Variation 21.1 % (11.7-14.2); RDW Standard Deviation 60.9 fL (35.1-46.3); Red Blood Cell Count 3.31 M/mm3 (3.80-5.20); White Blood Cell Count 16.63 K/mm3 (4.00-11.30)
[2024-09-30 07:18] VITALS: BP 116/86
[2024-09-30 07:37] LABS: Albumin, Blood 2.7 g/dL (3.4-5.0); Albumin/Globulin Ratio 0.8 (0.8-1.8); Bilirubin, Total 3.3 mg/dL (0.1-1.0); Bun/Creatinine Ratio 18.6 (12.0-20.0); Calcium, Blood 8.7 mg/dL (8.5-10.1); Creatinine, Blood 0.75 mg/dL (0.40-1.00); Globulin, Blood 3.4 g/dL (2.2-4.0); Magnesium, Blood 1.6 mg/dL (1.6-2.4); Phosphorus, Blood 1.2 mg/dL (2.5-4.9); Potassium, Blood 3.7 mmol/L (3.5-5.5); Total Protein, Blood 6.1 g/dL (6.4-8.2)
[2024-09-30] MEDS ORDERED: Potassium Phosphate Dibasic 30 MM in Dextrose 5% 500 ML IV STA (08:29)
--- NOTE | 2024-09-30 09:40 | NUR ---
EDUARDO FROM [facility] CALLED. WANTS 6 HRS STOP HEPARIN DRIP PRIOR TO PARACENTISIS TODAY. STOPPED HEPARIN 0940
[2024-09-30 10:37] VITALS: BP 114/86
--- NOTE | 2024-09-30 10:45 | NUR ---
1045 IN ROOM FOR IV MEDS FOR PT . SHE IS LESS ALERT THAN THIS AM. LETHARGIC. PENDING PARACENTISIS THIS AFTERNOON. BP 114/86, P 118, R 14, T 96.7, O2 100% R/A. PT ABLE TO TELL ME NAME AND MO/DAY OF . NO FURTHER ANSWERS, GOES BACK TO SLEEP . CALLED DR TO ROOM FOR LETHARGY. STATES MORE ASLEEP THAN NORMAL. GAVE CONSULT FORM FOR DR VIGIL. TO ORDER AMONIA LAB. PT REF BKFST THIS AM. TOO SLEEPY.
[2024-09-30 12:41] VITALS: BP 105/79
--- NOTE | 2024-09-30 12:42 | NUR ---
ANUP CALLED. PT NOT AWAKENING. CAME TO ROOM. SHE OBTUNDED. DOES NOT AWAKEN TO STERNAL RUB. VSS. EYES ROLLING TO BACK OF HEAD. CALLED DR TO ROOM. AMONIA 107. ORDERS FOR LACTULOSE EMEMA. CALLED PHA. ORDER TO BE TUBED. CT ORDERED
[2024-09-30] MEDS ORDERED: Lactulose 200 GM/300 ML Enema 300ML BTL PR SCH ×2 (13:00→19:00)
--- NOTE | 2024-09-30 14:40 | NUR ---
Spiritual Care Family Support. At the request of Jamey Breen, I met with Pts. older sister Abdiaziz in the med floor waiting area. Facilitated a lengthy life story that revealed some of the sources of the Pts. ongoing emotional pain. Listen with empathy and a calming presence. Sister displayed the entire range of emotions from tears to laughter. Sister verbalized that the family had been rooted maximiliano yazidi tradition in the past, and wondered if Father Amando would visit. Sister verbalized her understanding that Father Amando would come only at EOL to do the "Annointing of the Sick." Prayed with the Sister and when we finished other family members were present. Sister verbalized gratitude for the spiritual care visit and joined her family to visit the Pt. family went
[2024-09-30] MEDS ORDERED: Albumin (Human) 25gm/100ml 100 ML IV ONE (16:35)
--- NOTE | 2024-09-30 16:45 | NUR ---
CALLED [facility], SHE CHECKED WITH JAMIE PAYAN START HEPARIN 2 HRS AFTER PROCEURE. RESTART [address] JULIO, RE HEPARIN.
[2024-09-30 17:13] VITALS: BP 111/69
--- NOTE | 2024-09-30 18:01 | NUR ---
PALLIATIVE CARE CASE CONFERENCE: SPOKE TO MOTHER DERICK ON THE PHONE. GAVE HER AN UPDATE ON DAUGHTER WITH CONCERNS OF PT BEING OBTUNDED, DIFFICULT TO AROUSE. MOTHER WAS APPRECIATIVE OF CALL. WENT OVER LAB RESULTS AND MEDICATIONS THAT ARE BEING GIVEN TO ADDRESS ABNORMAL LABS AND PT MENTATION. DISCUSSED CURRENT CODE STATUS. EDUCATED ON FULL CODE/DNR. MOTHER WANTS HER DAUGHTER TO CONTINUE TO BE A FULL CODE.
[2024-09-30] MEDS ORDERED: Dose Adjust by Pharmacy XX ONE (18:30)
--- NOTE | 2024-09-30 18:52 | NUR ---
HEPARIN STARTED AT 183, [facility] NOTIFIED
--- NOTE | 2024-09-30 19:28 | NUR ---
PT WENT FROM ABLE TO TELL ME NAME AND MONTH OF THIS AM. ALTHOUGH TOOK PROMPTING. DID AWAKEN WITH TOUCH. MID MORNING, HARDER TO AWAKEN, AND DR WAS CALLED. CAME AND SAW PT. AMONIA LEVELS ORDERED. PT AT 107, LACTULOSE ENEMA ORDERED. DID NOT IMPROVE. HEPARIN STOPPED AT 0940 FOR PENDIING PARACENTISIS SET FOR 1530. PT CHAZ OBTUNDED T/O DAY, DISCUSSED WITH DR JULIO. SHE CAME SEE PT AGAIN MIDDAY. DISCUSSED WITH PALIATIVE CARERAMANA. SHE CAME TO SEE PT. AND IS GOING TO REPORT TO DR JULIO AT THAT TIME. SHE DISCUSSED WITH . KEEP PT ON MEDICAL FLOOR LONG VSS STAYS STABLE. THEY ARE TALKING WITH FAMILY RE CODE STATUS AND CONTINUES ON FULL CODE AT THIS TIME. PT NOT WAKING UP AT THIS TIME. FAMILY IN AND OUT OF ROOM TODAY. BED INL OW POSITION, CALL LITE IN [facility], BED ALARM ON FOR SSAFETY
[2024-09-30 19:47] VITALS: BP 108/70
[2024-09-30] MEDS ORDERED: Lactulose 20 GM/30 ML UDC PO SCH (22:10)
[2024-10-01 00:22] VITALS: BP 102/70
[2024-10-01 02:48] LABS: Hematocrit 27.5 % (33.0-51.0); Hemoglobin 8.8 g/dL (11.5-16.0); Mean Corpuscular HGB 27.9 pg (26.0-34.0); Mean Corpuscular Volume 87 fL (80-100); Platelet Count 111 K/mm3 (150-400); RDW Coefficient Variation 21.3 % (11.7-14.2); RDW Standard Deviation 60.1 fL (35.1-46.3); Red Blood Cell Count 3.15 M/mm3 (3.80-5.20)
[2024-10-01 02:50] LABS: NRBC ABSOLUTE 0.04 K/mm3 (0.00-0.02); NRBC Auto 0.2 /100 WBC (0.0-0.2); White Blood Cell Count 18.11 K/mm3 (4.00-11.30)
[2024-10-01 03:06] LABS: Albumin, Blood 3.1 g/dL (3.4-5.0); Albumin/Globulin Ratio 0.9 (0.8-1.8); Bilirubin, Total 3.2 mg/dL (0.1-1.0); Bun/Creatinine Ratio 24.4 (12.0-20.0); Calcium, Blood 8.9 mg/dL (8.5-10.1); Creatinine, Blood 0.86 mg/dL (0.40-1.00); Globulin, Blood 3.3 g/dL (2.2-4.0); Phosphorus, Blood 2.7 mg/dL (2.5-4.9); Total Protein, Blood 6.4 g/dL (6.4-8.2)
[2024-10-01 03:13] LABS: BAND PERCENT MAN 1 % (0-8); BASOPHILS ABSOLUTE MAN 0.18 K/mm3 (0.00-0.23); BASOPHILS PERCENT MAN 1 % (0-2); EOSINOPHILS PERCENT MAN 0 % (0-6); LYMPHOCYTES % ATYPICAL MANUAL 1 % (0-0); LYMPHOCYTES ABSOLUTE MAN 4.16 K/mm3 (0.84-5.20); LYMPHOCYTES PERCENT MAN 22 % (21-46); MONOCYTES ABSOLUTE MAN 1.08 K/mm3 (0.16-1.47); MONOCYTES PERCENT MAN 6 % (4-13); NEUTROPHILS ABSOLUTE MAN 12.67 K/mm3 (1.96-9.15); SEG NEUTROPHILS PERCENT MAN 69 % (41-73); TOTAL CELLS COUNTED 100
[2024-10-01] MEDS ORDERED: Clarify Drug Order XX ONE (03:40)
[2024-10-01 03:58] VITALS: BP 102/78
--- NOTE | 2024-10-01 05:33 | NUR ---
Shift Summary Pt started the shift obtunded, only responding with grunts to uncomfortable stimuli. She rcvd one lactulose enema before I got here and then another near the start of my shift as ordered. Pt had little muscle tone and the lactulose would come out as fast as it went in. After the 2nd enema pt started showing some responsiveness, I called the [facility] doctor and asked for an alternate order for PO lactulose if pt was alert and he placed the order. Pt was able to tolerate 40g PO lactulose with no issues swallowing, after this dose she was soon alert and mildly confused but improving t/o the night. 0200 ammonia lab was less than 10. Pt had multiple loose watery stools since she woke up using the bedpan. Because of multiple stools, low ammonia lab and increasing cognition I'm going to hold 0600 lactulose dose and report to dayshift.
[2024-10-01] MEDS ORDERED: Lactulose 20 GM/30 ML UDC PO SCH (06:00)
[2024-10-01 08:00] VITALS: BP 123/102
[2024-10-01] MEDS ORDERED: Dose Adjust by Pharmacy XX STA (10:23)
[2024-10-01] MEDS ORDERED: Apixaban 5 MG Tab PO SCH (10:58)
[2024-10-01] MEDS ORDERED: Apixaban 5 MG Tab PO ONE (13:25)
[2024-10-01] MEDS ORDERED: TraMADol HCl 50 MG Tab PO PRN (14:00)
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
[2024-10-01 16:07] VITALS: BP 132/95
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
--- NOTE | 2024-10-01 19:18 | NUR ---
ASSUMED CARE OF PT PT DOING VERY WELL THIS MORNING, IS ALERT AND ORIENTED, MAKING NEEDS KNOWN, RECTAL LACTALOSE WAS CHANGED TO ORAL. PT/OT WORKED WITH PT TODAY AND PT PRANAV WELL, PT WAS ABLE TO USE FWW TO REST ROOM WITH MINIMAL ASSIST. SPIRITUAL STAFF AT BEDSIDE TO PRAY WITH PT, PT VERY EMOTIONAL ABOUT CURRENT SITUATION, PT CONSOLABLE AND REASSURED BY LISTENING AND TOUCH. OT DID COGNATIVE EVAL TODAY HEPARIN WAS STOPPED AT 1300, PT STARTED ON ELIQUIS.
[2024-10-01 19:36] VITALS: BP 119/86
[2024-10-02] VITALS (31 sets, daily range): BP systolic 100–134; BP diastolic 70–99
--- NOTE | 2024-10-02 04:32 | NUR ---
SHIFT SUMMARY: PT AOX4 STILL CONFUSED, FORGETFUL, AND HAS DIFFICULTY FINDING WORDS. PT SISTER WAS AT BEDSIDE AND STATES THAT WHILE SHE HAS IMPROVED SIGNIFICANTLY, IS STILL VERY MUCH ALTERED AND THAT THIS IS NOT BASELINE. PT STATES TO BE FEELING MUCH BETTER, BUT STILL FEELS SLOW COGNITIVELY. IS TOLERATING MEDICATIONS WELL AND HAS HAD SOME LARGE BMS. CALLS APPROPRIATELY AND IS A 1PA TO THE RESTROOM. ISNT ABLE TO SLEEP AT ALL THROUGH THE NIGHT BUT OVERALL PLEASANT. SOME [place] BLOOD NOTED IN THE STOOL. STILL VERY PLEASANT. FAMILY ANXIOUS ABOUT HER BEING DISCHARGED IN ALTERED STATE AND WANT TO BE CONSULTED BEFORE ANY PLACEMENT OR DISCHARGE PLANNING. PT IN BED RESTING, BED IN LOWEST POSITION, CALL LIGHT IN REACH. CONTINUING CARE.
[2024-10-02 05:45] LABS: Hematocrit 25.9 % (33.0-51.0); Mean Corpuscular HGB 27.5 pg (26.0-34.0); Mean Corpuscular HGB Conc 30.9 g/dL (31.5-36.5); Mean Corpuscular Volume 89 fL (80-100); NRBC ABSOLUTE 0.08 K/mm3 (0.00-0.02); NRBC Auto 0.5 /100 WBC (0.0-0.2); Platelet Count 123 K/mm3 (150-400); RDW Coefficient Variation 21.8 % (11.7-14.2); RDW Standard Deviation 62.2 fL (35.1-46.3); Red Blood Cell Count 2.91 M/mm3 (3.80-5.20); White Blood Cell Count 16.82 K/mm3 (4.00-11.30)
[2024-10-02 06:09] LABS: Albumin, Blood 2.7 g/dL (3.4-5.0); Albumin/Globulin Ratio 0.8 (0.8-1.8); BAND PERCENT MAN 2 % (0-8); BASOPHILS PERCENT MAN 0 % (0-2); Bilirubin, Total 2.2 mg/dL (0.1-1.0); Calcium, Blood 8.8 mg/dL (8.5-10.1); Creatinine, Blood 0.91 mg/dL (0.40-1.00); EOSINOPHILS ABSOLUTE MAN 0.67 K/mm3 (0.00-0.68); EOSINOPHILS PERCENT MAN 4 % (0-6); Globulin, Blood 3.3 g/dL (2.2-4.0); LYMPHOCYTES ABSOLUTE MAN 3.86 K/mm3 (0.84-5.20); LYMPHOCYTES PERCENT MAN 23 % (21-46); MONOCYTES ABSOLUTE MAN 1.51 K/mm3 (0.16-1.47); MONOCYTES PERCENT MAN 9 % (4-13); NEUTROPHILS ABSOLUTE MAN 10.76 K/mm3 (1.96-9.15); SEG NEUTROPHILS PERCENT MAN 62 % (41-73); TOTAL CELLS COUNTED 100
--- NOTE | 2024-10-02 11:34 | NUR ---
PER REPORT FROM TEXTURING MACHINE FIXER MADELYN HAHN, PT HAD COFFEE GROUND EMESIS. THIS RN NOTIFIED THIS AM AT BEDSIDE. PO MEDS HELD.
[2024-10-02 12:24] LABS: Hematocrit 23.3 % (33.0-51.0); Hemoglobin 7.4 g/dL (11.5-16.0)
[2024-10-02] MEDS ORDERED: Pantoprazole Sodium 40 MG Injection IV STA (15:55)
[2024-10-02] MEDS ORDERED: NS 1,000 ML IV SCH (16:00)
[2024-10-02] MEDS ORDERED: Octreotide Acetate 50 MCG in NS 50 ML IV STA (16:05)
[2024-10-02] MEDS ORDERED: Pantoprazole Sodium 40 MG in NS 50 ML IV SCH (16:10)
[2024-10-02] MEDS ORDERED: Octreotide Acetate 500 MCG in NS 250 ML IV SCH (16:10)
[2024-10-02 16:34] LABS: Hematocrit 22.1 % (33.0-51.0); Hemoglobin 6.8 g/dL (11.5-16.0)
--- NOTE | 2024-10-02 16:56 | NUR ---
TRANSFER TO ICU PT ARRIVED TO ICU 4 VIA BED AT 1645. PT IS AWAKE AND ALERT UPON ARRIVAL. PT SPEAKING CLEAR, BUT IS NONSENSICAL. PT FOLLOWS SIMPLE COMMANDS APPROPRIATELY. PT MOVES ALL EXTREMITIES SPONTANEOUSLY. PT WITH NS BOLUS INFUSING AND PROTONIX GTT UPON ARRIVAL. SANDOSTATIN TO BE STARTED AT THIS TIME. PIV'S C/D/I. PT WITH MULTIPLE SCATTERED BRUISES AND WOUNDS THROUGHOUT. MEPILEX DRESSINGS LIFTED AND WOUNDS VISUALIZED WITH MADELYN LAMA. WOUND PHOTOS IN CHART. PT WITH ATTENDS IN PLACE. VITAL SIGNS STABLE. PT ON ROOM AIR. LS CLEAR T/O. ABDOMEN DISTENDED. PT WITH REPORTS OF COFFEE GROUND EMESIS AND BRIGHT RED BLOOD WITH CLOTS PER REPORT. NO SIGNS OF GI BLEEDING NOTED AT THIS TIME. NO FAMILY AT BEDSIDE. WILL CONTINUE TO MONITOR AND REPORT OFF TO ONCOMING RN.
--- NOTE | 2024-10-02 17:05 | NUR ---
AT APPROX 1545, THIS RN WAS NOTIFIED BY COMMUTATOR TESTER RENNY THAT VOLUNTEER RECOMMENDED THIS RN TO ASSESS PT. UPON ARRIVAL TO THE ROOM, PT WAS COVERED IN BLOOD. PT WAS ALERT, ABLE TO ANSWER QUESTIONS AND STATED SHE HAD AN EMESIS. THIS RN RAISED THE HOB, VITAL SIGNS TAKEN AND STABLE, SUCTION SET UP, AND WAS NOTIFIED AND CAME TO BEDSIDE. CONSTRUCTION FLAGGER'S ARNIE AND ELLEN ALSO CAME TO BEDSIDE. NEW ORDERS RECEIVED. NS BOLUS, PROTONIX DRIP, AND SANDOSTATIN GIVEN. THIS RN GAVE REPORT TO CONTINUOUS MINING MACHINE OPERATORMADELYN STEEN. PT TRANSPORTED TO ICU 4 BY THIS RN AND MARLEN ROWE. MEDICATIONS AND CHART GIVEN TO MADELYN STEEN.
[2024-10-02 17:34] LABS: Platelet Count 99 K/mm3 (150-400)
[2024-10-02 17:49] LABS: International Normalized Ratio 2.18
--- NOTE | 2024-10-02 18:12 | NUR ---
AT APPROX 1645, THIS RN WAS NOTIFIED BY SURGICAL AIDE RENNY THAT HOSPITAL VOLUNTEER RECOMMENDED THIS RN TO ROUND ON PT. UPON ARRIVAL TO THE ROOM, THE PT WAS COVERED IN BLOOD. PT WAS ALERT, ABLE TO ANSWER QUESTIONS, AND STATED SHE HAD AN EMESIS. THIS RN RAISED THE HOB, VITAL SIGNS WERE TAKEN, SUCTION WAS SET UP, AND AND MEASURER MACHINE'S NOTIFIED. AND MEASURER MACHINE'S ARNIE AND ELLEN CAME TO BEDSIDE. NEW ORDERS RECEIVED. NS AND SANDOSTATIN BOLUS GIVEN AND PROTONIX DRIP STARTED. THIS RN GAVE REPORT TO GRISTMILL OPERATOR ENIO. THIS RN AND MARLEN ROWE TRANSPORTED PT TO ICU 4 VIA BED AT APPROX 1700. MEDICATIONS AND CHART GIVEN TO ENIO JOHSI.
[2024-10-02 18:38] LABS: Hematocrit 21.1 % (33.0-51.0); Hemoglobin 6.4 g/dL (11.5-16.0)
--- NOTE | 2024-10-02 22:56 | NUR ---
UPDATE ASSUMED CARE OF PT AT 1900, PT AWAKE TO VERBAL STIMULI, ORIENTED TO SELF, DROWSY, NODS HEAD YES/NO TO QUESTIONS BUT NOT TALKING, FOLLOWS COMMANDS, CLOSES EYES WHEN NOT BEING SPOKEN TO, AFEBRILE, BP STABLE, SR-ST 90-110s, ON RA AND PLACED ON 2 LPM NC FOR NOTED SPO2 87% WITH SNORING RESPIRATIONS, OCTREOTIDE, PROTONIX AND NS INFUSING PER EMAR, PIV X3 PATENT, PT INCONTINENT X1 OF MED LOOSE WATERY MAROON STOOL, PERICARE GIVEN WITH DESINEX POWDER AND BARRIER CREAM APPLIED, MEPILEX TO SACRUM CHANGED, 1 UNIT PRBC COMPLETED AT 2200, PT MORE AWAKE AND ALERT, REMAINS CONFUSED, ATTEMPTING TO READ EMESIS BAG AND CALLING OUT LETTERS RANDOMNLY, WHEN ASKED QUESTIONS CONTINUES TO NOD HEAD YES/NO, ZOFRAN IVP GIVEN X1 FOR NAUSEA, PT DENIES C/O PAIN 5 REPORT CALLED TO ARACELIS JOSHI AT [facility] FOR TRANSFER TO NEURO TRAUMA ICU ROOM 4116, CALLED AND NOTIFIED PT MOTHER DERICK OF TRANSFER AND PT ROOM NUMBER
[2024-10-03] MEDS ORDERED: NS IV SCH (09:00)
[2024-10-03] MEDS ORDERED: CefTRIAXone Sodium 1,000 MG in NS 100 ML IV SCH (09:00)
[2024-10-03] MEDS ORDERED: Folic Acid 1 MG in NS 50 ML IV SCH (09:00)
[2024-10-03] MEDS ORDERED: MULTIVITAMINS IV SCH (09:00)
== END 2024-10-02 23:30 | disposition short-term general hospital (02) | DRG 432 ==
LOC: ER 21:20 → MEDS 09-25 01:08 → ERHOLD 09-25 01:08 → ICUE 09-25 01:08 → PCU 09-27 10:10 → MEDS 09-29 23:36 → ICUE 10-02 16:30
PROVIDERS: Emergency Medicine; Internal Medicine; Student in an Organized Health Care Education/Training Program; ADMIT Student in an Organized Health Care Education/Training Program
PROC: 0W9G3ZZ Drainage of Peritoneal Cavity, Percutaneous Approach (ICD-10-PCS; 2024-09-25)
PROC: 30233N1 Transfusion of Nonautologous Red Blood Cells into Peripheral Vein, Percutaneous Approach (ICD-10-PCS; principal; 2024-09-30)
PROC: 30233J1 Transfusion of Nonautologous Serum Albumin into Peripheral Vein, Percutaneous Approach (ICD-10-PCS; 2024-09-30)
PROC: B24BZZZ Ultrasonography of Heart with Aorta (ICD-10-PCS; 2024-09-30)
PROC: 0W9G3ZZ Drainage of Peritoneal Cavity, Percutaneous Approach (ICD-10-PCS; 2024-09-30)
DX: K70.31 Alcoholic cirrhosis of liver with ascites (principal); G92.8 Other toxic encephalopathy; I81 Portal vein thrombosis; K65.2 Spontaneous bacterial peritonitis; R57.1 Hypovolemic shock; K27.4 Chronic or unspecified peptic ulcer, site unspecified, with hemorrhage; D62 Acute posthemorrhagic anemia; K76.6 Portal hypertension; D68.4 Acquired coagulation factor deficiency; N39.0 Urinary tract infection, site not specified; E87.0 Hyperosmolality and hypernatremia; F10.239 Alcohol dependence with withdrawal, unspecified; I47.20 Ventricular tachycardia, unspecified; F90.9 Attention-deficit hyperactivity disorder, unspecified type; F31.9 Bipolar disorder, unspecified; G43.909 Migraine, unspecified, not intractable, without status migrainosus; F43.10 Post-traumatic stress disorder, unspecified; M85.80 Other specified disorders of bone density and structure, unspecified site; B37.9 Candidiasis, unspecified; K76.82 Hepatic encephalopathy; E87.6 Hypokalemia; E83.42 Hypomagnesemia; E83.39 Other disorders of phosphorus metabolism; N92.4 Excessive bleeding in the premenopausal period; R53.81 Other malaise; Z98.890 Other specified postprocedural states; Z87.891 Personal history of nicotine dependence; Z88.0 Allergy status to penicillin; Z88.2 Allergy status to sulfonamides; Z88.8 Allergy status to other drugs, medicaments and biological substances; Z91.51 Personal history of suicidal behavior; S70.211A Abrasion, right hip, initial encounter; S70.212A Abrasion, left hip, initial encounter; X58.XXXA Exposure to other specified factors, initial encounter
CPT/HCPCS: 36415; 36430; 49083; 51702; 70450; 71045; 72170; 74177; 76830; 80048; 80053; 80074; 80320; 81001; 82042; 82140; 82247; 82248; 82550; 82728; 82803; 82945; 82947; 83540; 83550; 83605; 83615; 83690; 83735; 84100; 84157; 84550; 85014; 85018; 85025; 85027; 85049; 85520; 85610; 85730; 86592; 86850; 86900; 86901; 86920; 86923; 87040; 87070; 87075; 87077; 87086; 87186; 87205; 89051; 93005; 93010; 93306; 94762; 96361; 96374; 97116; 97129; 97161; 97165; 97530; 99285-25; A9270; G0480; J0696; J1644; J2354; J2405; J2470; J2916; J3411; J3475; J3480; J7030; J7042; J7050; J7060; P9016; P9047; Q9967